=== PATIENT | male | born 1955 | race Caucasian/White ===

== ENCOUNTER → 2016-10-12 | Outpatient (CLI) | payer BC ==
[2015-09-26 10:35] VITALS: BP 114/72
[~2016-10-12] MED LIST: ASPI81TA50 PO; ATOR20TA58 PO; ATORVASTATIN CA80 MG PO; LOSA50TA6 PO; METO25TA9 PO; SPIR25TA3 PO
--- NOTE | 2016-10-12 08:39 | RAD ---
Indication cough. Sinus headache. PA and lateral views of the chest were obtained. Comparison is made to an exam 07/01/2015. Postoperative changes are noted. There is a bipolar cardiac pacing device. Heart size and pulmonary vessels are normal. The lungs are clear. There is no pleural fluid or pneumothorax. Apart from placement of a cardiac pacing device there has not been a significant change compared to the previous exam. IMPRESSION:: No acute or focal process seen in the chest
== END | disposition home or self-care (01) ==
LOC: DXRADRC 08:22
PROVIDERS: ATTEND Nurse Practitioner Family
DX: R05 Cough (principal); R51 Headache; Z95.0 Presence of cardiac pacemaker
CPT/HCPCS: 71020

== ENCOUNTER → 2018-04-25 | Outpatient (CLI) | payer BC ==
[2015-09-26 10:35] VITALS: BP 114/72
[~2018-04-25] MED LIST changes: -LOSA50TA6 PO; +LOSA50TA86 PO; +METO-239 PO; -METO25TA9 PO; -SPIR25TA3 PO; +SPIR25TA5 PO
--- NOTE | 2018-04-25 16:08 | RAD ---
EXAM: Chest and right ribs, 4 views. HISTORY: Pain with coughing. COMPARISON: 10/12/2016. FINDINGS: A frontal view the chest and 3 views of the right ribs are obtained. There is no infiltrate, pleural effusion or pneumothorax. The heart is normal in size. There is evidence of CABG. Is a cardiac pacemaker defibrillator in expected position. No displaced rib fracture is seen. IMPRESSION: No acute pulmonary or osseous finding. Electronically signed by: Ladan Kaye MD (04/25/2018 4:04 PM) [place] [id number]
== END | disposition home or self-care (01) ==
LOC: PMG 07:40
PROVIDERS: ATTEND Physician Assistant Medical
DX: R07.89 Other chest pain (principal); R07.81 Pleurodynia; Z95.1 Presence of aortocoronary bypass graft
CPT/HCPCS: 71101

== ENCOUNTER 2021-06-09 12:19 | Emergency (ER) | payer MEDICARE, BC ==
[~2021-06-09] VITALS: Ht 190.5 cm; Wt 118.7 kg
[2021-06-09] MEDS ORDERED: OXYMETAZOLINE 0.05% NASAL SPRAY 30ML BOTTLE. NS ONE (12:45)
--- NOTE | 2021-06-09 12:54 | PHYS DOC ---
Past History Past Medical History: Hypertension, [place] Additional Past Medical Histor: pacemaker and dif. Past Surgical History: Appendectomy, Coronary Bypass Surgery, Tonsillectomy Alcohol Use: Occasionally Drug Use: None Adult General Chief Complaint Chief Complaint: NOSEBLEED HPI HPI Patient is a 65-year-old male presenting via POV for nosebleed. This is an acute issue. Reports he is currently on Eliquis for past history of CABG, CAD and atrial fibrillation status post pacemaker placement for which he seeks all care at [facility]. Nonetheless, he has been on Eliquis for approximately a year without any major bleeding episodes. He had an uncomplicated nosebleed without trauma or other inciting event or mechanism of injury 2 days ago that resolved with direct pressure and Afrin administration. Today, he reports recurrence of nosebleed without digital trauma or other known allergen or exposure. This bleed was right-sided, consistent with last nosebleed and did not immediately resolve with direct pressure prompting him to come in for evaluation. He believes he lost approximately 6 ounces of blood. No lightheaded or dizziness, chest pain, ripping or tearing sensation in torso, capitation's or other concerning findings. Associated symptoms include mild blood expulsion from inferior portion of left eye with slight blurring otherwise no visual changes. Review of Systems Review of Systems Fourteen body systems of review of systems have been reviewed. See HPI for pertinent positives and negative responses, other han all other systems are negative, non-pertinent or non-contributory Current Medications Current Medications Current Medications Medications (Trade) Dose Ordered Sig/Jian Start Time Stop Time Status Last Admin Dose Admin Oxymetazoline HCl (Afrin) 2 spray 1X ONCE 06/09/21 12:45 06/09/21 12:49 DC 06/09/21 12:47 2 SPRAY Allergies Allergies Allergies Coded Allergies Type Severity Reaction Last Updated Verified No Known Drug Allergies 06/09/21 No Physical Exam Physical Exam Constitutional: Well developed, well nourished, no acute distress, non-toxic appearance. HENT: Normocephalic, atraumatic, bilateral external ears normal, oropharynx moist, no oral exudates, nose normal. Left nare patent with residual blood present in addition to present in posterior oropharynx. Right nare occluded with obvious clot present in the posterior nasopharyngeal cavity Eyes: PERRLA, EOMI, conjunctiva normal, no discharge. Neck: Normal range of motion, no tenderness, supple, no stridor. Cardiovascular: Heart rate regular, sinus rhythm, no murmurs rubs or gallops. Left upper outer pacemaker present Lungs & Thorax: Bilateral breath sounds clear to auscultation Abdomen: Bowel sounds normal, soft, no tenderness, no masses, no pulsatile masses. Nonsurgical abdomen, no peritoneal signs Skin: Warm, dry, no erythema, no rash. Back: No tenderness, no CVA tenderness. Extremities: No tenderness, no cyanosis, no clubbing, ROM intact, no edema. Neurologic: Alert and oriented X 3, grossly normal motor & sensory function, no focal deficits noted. Psychologic: Affect normal, judgement normal, mood normal. Current Patient Data Vital Signs Vital Signs Date Time Temp Pulse Resp B/P (MAP) Pulse Ox O2 Delivery O2 Flow Rate FiO2 06/09/21 12:31 97.9 86 20 128/93 (105) 96 Room Air Lab Results Current Medications Medications (Trade) Dose Ordered Sig/Jian Route PRN Reason Start Time Stop Time Status Last Admin Dose Admin Oxymetazoline HCl (Afrin) 2 spray 1X ONCE NS 06/09/21 12:45 06/09/21 12:49 DC 06/09/21 12:47 EKG EKG [] Radiology/Procedures Radiology/Procedures [] Heart Score C/O Chest Pain: No Risk Factors: Risk Factors: DM, Current or recent (<one month) smoker, HTN, HLP, family history of CAD, obesity. Risk Scores: Risk Factors: DM, Current or recent (<one month) smoker, HTN, HLP, family history of CAD, obesity. Course & Med Decision Making Course & Med Decision Making ABCs unremarkable HPI physical exam and comprehensive ER work-up nonconcerning for any emergent or surgical issues Patient's 1 hour long bloody nose resolved with direct compression and subsequent squirts of Afrin. Clot burden was expelled and subsequent Afrin provided continued relief Case complicated due to ongoing Eliquis use. Patient's cardiology team at [facility], on-call manager safe recommended discontinuation of Eliquis with close outpatient follow-up given patient is normal sinus rhythm without recent evidence of atrial fibrillation Entirety of findings and conversation above had with patient and daughter at bedside. They were amenable to plan of care. All questions and concerns addressed prior to ER departure Dragon Disclaimer Nelly Disclaimer This electronic medical record was generated, in whole or in part, using a voice recognition dictation system. Departure Departure: Impression: Primary Impression: Nosebleed Disposition: HOME / SELF CARE / HOMELESS Condition: STABLE Referrals: ELIAZAR HILL MD (PCP) Patient Instructions: Nosebleed Additional Instructions: As discussed prior to ER departure, your vitals, physical examination and comprehensive ER work-up were nonconcerning for any emergent or surgical issues. Your case was reviewed with your on-call cardiology team and recommendations to discontinue Eliquis until further notice was advised. Please contact your cardiology office immediately after ER departure to review visit today and need for close outpatient follow-up. You should blow your nose and hold pressure on the lower part of your nose if you develop a nose bleed again. Continue this for 20 minutes or until the bleeding stops. Do not remove the pressure to look before this time as your nose will start bleeding again. The allergy medicine previously prescribed should help with this and you need to avoid putting anything in your nose in the future (e.g. fingers, kleenex, qtips, etc) NANI COBB DO Jun 09, 2021 12:54
[2021-06-09 13:17] LABS: BASO % 0 % (0-3); EOS % 0 % (0-3); HEMOGLOBIN 17.1 g/dL (13.0-17.5); LYMPH # 1.5 x10^3/uL (1.0-4.8); LYMPH % 18 % (24-48); MEAN CORPUSCULAR HEMOGLOBIN 32 pg (25-35); MEAN CORPUSCULAR HGB CONC 34 g/dL (31-37); MEAN CORPUSCULAR VOLUME 93 fL (79-100); MONO # 0.7 x10^3/uL (0.0-1.1); MONO % 8 % (0-9); NEUT # 6.2 x10^3uL (1.8-7.7); NEUT % 74 % (31-73); PLATELET COUNT 205 x10^3/uL (140-400); RED BLOOD COUNT 5.39 x10^6/uL (4.30-5.70); RED CELL DISTRIBUTION WIDTH 13.6 % (11.5-14.5); WHITE BLOOD COUNT 8.4 x10^3/uL (4.0-11.0)
[2021-06-09 13:26] LABS: CREATININE 0.8 mg/dL (0.7-1.3); GFR 96.7; POTASSIUM 3.6 mmol/L (3.5-5.1)
[2021-06-09 14:29] VITALS: BP 112/75
== END 2021-06-09 16:06 | disposition home or self-care (01) ==
LOC: ER 12:19
DX: R04.0 Epistaxis (principal); I10 Essential (primary) hypertension; I25.2 Old myocardial infarction; I25.810 Atherosclerosis of coronary artery bypass graft(s) without angina pectoris; I48.91 Unspecified atrial fibrillation; Z95.0 Presence of cardiac pacemaker; Z79.01 Long term (current) use of anticoagulants
CPT/HCPCS: 36415; 80048; 85025; 85610; 85730; 99283